=== PATIENT | male | born 1970 | race Caucasian/White ===

== ENCOUNTER 2016-12-14 17:10 | Emergency (ER) | payer OTHER ==
[~2016-12-14] VITALS: Ht 167.6 cm; Wt 90.7 kg
[~2016-12-14 17:10] MED LIST: ANUSOL-HC30 GM TOP; BACTRIM DS 8001 TAB PO; DIFLUCAN200 M1 PO; FLEXERIL10 MG PO; IBUPROFEN800 MG PO; JENTADUETO 2.51 EAC1 PO; KEFLEX500 MG PO; LAMISIL250 M1 PO; METFORMIN HCL500 MG PO; MOBIC15 M1 PO; MOTRIN 600 MG600 MG PO; SIMVASTATIN20 M2 PO; TRAMADOL50 MG PO; ULTRAM50 M1 PO; VALIUM5 M1 PO; VALIUM5 M2 PO; VICODIN 5-3001 EACH PO
[2016-12-14 17:13] VITALS: BP 122/70
--- NOTE | 2016-12-14 17:37 | ED UPPER/LOWER EXTREMITY COMPL ---
History of Present Illness General Chief Complaint: General Adult Stated Complaint: INJURU TO RT KNEE AT WORK NEEDS NOTE Source: patient Exam Limitations: no limitations Vital Signs & Intake/Output Vital Signs & Intake/Output Vital Signs Date Time Temp Pulse Resp B/P B/P Pulse O2 O2 Flow FiO2 Mean Ox Delivery Rate 12/14 1728 98 Room Air 12/14 1713 98.1 81 16 122/70 98 Room Air Allergies Coded Allergies: NO KNOWN ALLERGIES (06/24/16) Reconcile Medications Cephalexin (Keflex) 500 MG CAP 1 TAB PO 4 TIMES/DAY CELLULITIS CYCLOBENZAPRINE HCL (Flexeril) 10 MG TAB 1 TAB PO 4 TIMES/DAY PRN MUSCLE SPASM Diazepam (Valium) 5 MG TABLET 1-2 TAB PO Q6P PRN STRAIN Diazepam (Valium) 5 MG TABLET 1-2 TAB PO Q6P PRN muscle strain/spasm Fluconazole (Diflucan) 200 MG TABLET 1 TAB PO DAILY RASH Hydrocodone/Acetaminophen (Vicodin 5-300 MG Tablet) 1 EACH TABLET 1-2 TAB PO Q6P PRN severe pain Hydrocortisone (Anusol-Hc) 2.5 % CREAM..G. 1 GE TOP TID PRN HEMORRHOIDS apply to affected area(s) Hydrocortisone (Anusol-Hc) 2.5 % CREAM..G. 1 GE TOP TID PRN HEMORRHOID apply to affected area(s) Ibuprofen 800 MG TAB 1 TAB PO 4 TIMES/DAY PRN PAIN Ibuprofen (Motrin 600 MG Tab) 600 MG TABLET 1 TAB PO Q6P PRN PAIN Linagliptin/Metformin HCl (Jentadueto 2.5 MG-850 MG Tab) 1 EACH TABLET 1 TAB PO BID DIABETES (Reported) Meloxicam (Mobic) 15 MG TABLET 1 TAB PO DAILY PRN PAIN/INFLAMMATION Metformin Hydrochloride (Metformin HCl) 500 MG TAB 1 TAB PO BID DIABETES ( Reported) Simvastatin (Simvastatin*) 20 MG TABLET 1 TAB PO QPM HYPERLIPIDEMIA (Reported ) Sulfamethoxazole/Trimethopri (Bactrim Ds 800 MG-160 MG) 1 TAB TAB 1 TAB PO BID CELLULITIS Terbinafine HCl (Lamisil) 250 MG TABLET 1 TAB PO DAILY TINEA CORPORIS TRAMADOL HCL (Tramadol) 50 MG TABLET 1-2 TAB PO Q6P PRN MODERATE PAIN Tramadol HCl (Ultram) 50 MG TABLET 1-2 TAB PO Q6PRN PRN moderate pain Triage Note: PT HERE FOR WORK NOTE STATES HE INJURED HIMSELF ON SUNDAY WAS SEEN BY [facility] WAS GIVEN WORK NOTE UNTIL THIS SUNDAY. PT WAS TO F/UP WITH [facility] AND WAS NOT ABLE TO BE SEEN FOR F/UP UNTIL December AND HIS WORK NOTE WILL BE . Triage Nurses Notes Reviewed? yes Onset: Abrupt Duration: day(s): (4), constant, continues in ED Timing: recent history Severity: moderate, severe Pain/Injury Location: Right: Knee. No Modifying Factors: none HPI: 38-year-old male comes into emergency room for a work note. Patient reports that 4 days ago he injured his right knee at work. 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 He went to [facility] where he had an x-ray done which showed no fracture. He has an appointment with his orthopedic doctor on Sunday. Patient was given crutches as well as a knee immobilizer but reports that the pain is still very persistent in his work now only was to this Sunday. Patient still cannot weight -bear on it. He reports swelling. He has not picked up the pain medication yet that they prescribed him. (CHRISTINA WOODARD) Past History Travel History Traveled to [place] past 21 day No Medical History Any Pertinent Medical History? see below for history Neurological: NONE EENT: NONE Cardiovascular: NONE Respiratory: NONE Gastrointestinal: NONE Hepatic: NONE Renal: NONE Musculoskeletal: NONE Psychiatric: NONE Endocrine: diabetes Blood Disorders: NONE Cancer(s): NONE TEXTILE EXAMINER/Reproductive: NONE Tetanus Vaccine: 11/08/11 Surgical History Surgical History: non-contributory, N Psychosocial History What is your primary language Mexican Tobacco Use: Never used ETOH Use: occasional use Illicit Drug Use: denies illicit drug use Family History Hx Contributory? No (CHRISTINA WOODARD) Review of Systems Review of Systems Constitutional: Reports: no symptoms. EENTM: Reports: no symptoms. Respiratory: Reports: no symptoms. Cardiovascular: Reports: no symptoms. Gastrointestinal/Abdominal: Reports: no symptoms. Genitourinary: Reports: no symptoms. Musculoskeletal: Reports: see HPI. Skin: Reports: no symptoms. Neurological/Psychological: Reports: no symptoms. Hematologic/Endocrine: Reports: no symptoms. Immunological: Reports: no symptoms. All Other Systems: Reviewed and Negative (CHRISTINA WOODARD) Physical Exam Physical Exam General Appearance: well developed/nourished, mild distress Head: atraumatic Eyes: Bilateral: normal appearance. Ears, Nose, Throat: normal ENT inspection, hearing grossly normal Neck: normal inspection Cardiovascular/Respiratory: no respiratory distress Back: normal inspection Knee Right: soft tissue tenderness, limited range of motion Knee Ligaments Right: pain lateral stress, positive Ritesh's Neurologic/Tendon: normal sensation, responds to pain, no evidence tendon injury , no pulse deficit Skin: intact, normal color, warm/dry Lymphatic: no anterior cervical riky (CHRISTINA WOODARD) Progress Differential Diagnosis: contusion, dislocation, DVT, fracture, gout, septic arthritis, sprain, tendon injury, LCL/MCL tear, meniscal tear, ACL/PCL tear, quadriceps tendon tear, Plan of Care: see below (CHRISTINA WOODARD) Departure Departure Disposition: HOME OR SELF CARE Condition: Stable Clinical Impression Primary Impression: Right knee sprain Referrals: Ramila SIDDIQUI MD (PCP/Family) Additional Instructions: Take your pain medications that were prescribed to you. Follow-up with your orthopedic doctor. You need a MRI of her right knee. Return if any other concerns. Please go over all results of today's visit with your primary care doctor. Contact your primary care doctor to let them know you were here in the emergency room. There may be nonspecific findings which may not be related to your visit today here in the emergency room but may require further evaluation and chronic monitoring by your primary care doctor. If you had a laceration today the chance of foreign body always remains. You should follow-up with your primary care doctor for recheck in 3-5 days for a wound check. If you had an x-ray done there is a chance that a fracture could have been missed on initial read and you should follow-up with your primary care doctor for repeat x-rays if symptoms persist. If your blood pressure was elevated here in the emergency room please have rechecked by her primary care doctor within the next 48 hours by your primary care doctor. If you were prescribed a narcotic here in the emergency room or any type of controlled substances you're not allowed to drive while taking this medication or operate any type of heavy machinery. Narcotics can make you feel lightheaded dizziness nausea and can cause constipation. You may need to picker packer a stool softener. Thank you for choosing [facility] emergency room. Please return to the emergency room immediately if you have any other concerns worsening of symptoms. Departure Forms: Customer Survey General Discharge Information Comments 12/14/2016 6:14:51 PM High suspicion for care in the right knee. It could be a partial LCL or quadriceps tendon tear. Patient will need evaluation for meniscal tear. Patient needs MRI of right knee. Patient has appointment with his orthopedic or any on Sunday and needs a work note until them. Declined any pain medication. Patient already has a knee immobilizer and crutches. (HARJIT TIJERINA,CHRISTINA) PA/ROLL COATING MACHINE OPERATOR Co-Sign Statement Statement: ED Attending supervision documentation- [] I saw and evaluated the patient. I have also reviewed all the pertinent lab results and diagnostic results. I agree with the findings and the plan of care as documented in the PA's/ROLL COATING MACHINE OPERATOR's documentation. [X] I have reviewed the ED Record and agree with the PA's/ROLL COATING MACHINE OPERATOR's documentation. [] Additions or exceptions (if any) to the PAs/ROLL COATING MACHINE OPERATOR's note and plan are summarized below: [] (IVY CORDOVA DO
== END 2016-12-14 17:42 ==
LOC: ERH 17:10
DX: S83.91XA Sprain of unspecified site of right knee, initial encounter (principal); X58.XXXA Exposure to other specified factors, initial encounter; Y92.9 Unspecified place or not applicable; Y93.9 Activity, unspecified